=== PATIENT | female | born 1995 | race Caucasian/White ===

== ENCOUNTER 2016-11-05 09:02 | Emergency (ER) | payer MEDICAID, OTHER ==
[~2016-11-05] VITALS: Ht 157.5 cm; Wt 74.8 kg
[~2016-11-05 09:02] MED LIST: UNK ABX
[2016-11-05 09:03] VITALS: BP 121/74
--- NOTE | 2016-11-05 09:05 | NUR ---
PT AMBULATED TO BED 7.
[2016-11-05] MEDS ORDERED: NACL 0.9% 1,000 ML IV ONE (09:15)
[2016-11-05] MEDS ORDERED: KETOROLAC 30 MG/ML VIAL IVP ONE (09:15)
[2016-11-05] MEDS ORDERED: ONDANSETRON 4 MG/2 ML VIAL IVP ONE (09:15)
--- NOTE | 2016-11-05 09:15 | NUR ---
ER MD DR. FORREST EVALUATING PT AT BEDSIDE.
[2016-11-05] MEDS ORDERED: KETOROLAC 30 MG/ML VIAL ONE (09:23)
[2016-11-05] MEDS ORDERED: ONDANSETRON 4 MG/5 ML ORASYR ONE (09:23)
[2016-11-05] MEDS ORDERED: ONDANSETRON 4 MG/2 ML VIAL ONE (09:24)
--- NOTE | 2016-11-05 09:25 | NUR ---
21 F BIB FAMILY FRIEND C/O 11/16 "SHARP" NON-RADIATING RUQ PAIN X 2 DAYS WITH N/V AND CONSTIPATION; PT ALSO C/O DYSURIA, FEVER, AND CHILLS; SKIN IS PINK/WARM/DRY; AOX4 WITH EVEN AND STEADY GAIT; RR ARE EVEN AND UNLABORED; PATIENT POSITIONED FOR COMFORT; HOB ELEVATED; BEDRAILS UP X2; ER MD MADE AWARE OF PT STATUS.; ALL NEEDS MET AT THIS TIME; WILL CONTINUE TO MONITOR
[2016-11-05 09:33] LABS: HEMATOCRIT 40.9 % (36-48); HEMOGLOBIN 13.6 g/dL (12.0-16.0); MEAN CORPUSCULAR HEMOGLOBIN 28 pg (27-31); MEAN CORPUSCULAR HGB CONC 33 g/dL (33-37); MEAN CORPUSCULAR VOLUME 83 fL (80-94); PLATELET COUNT (AUTO) 269 K/uL (140-450); RED BLOOD CELL COUNT(AUTO) 4.95 MIL/uL (4.20-5.40); RED CELL DISTRIBUTION WIDTH 14.6 % (11.6-13.7); WHITE BLOOD COUNT (AUTO) 17.6 K/uL (4.8-10.8)
[2016-11-05 09:44] LABS: ANION GAP 14.9 (8-16); CARBON DIOXIDE 22.4 mmol/L (21-32); POTASSIUM 3.3 mmol/L (3.5-5.1)
[2016-11-05 09:45] LABS: LYMPHOCYTES % (MANUAL) 2 % (20-46); MONOCYTES % (MANUAL) 3 % (5-12)
[2016-11-05 09:50] LABS: TOTAL BILIRUBIN 2.8 mg/dL (0.0-1.0)
--- NOTE | 2016-11-05 11:21 | NUR ---
PATIENT RESTING WITH EYES CLOSED; NAD; VSS; WILL CONTINUE TO MONITOR
[2016-11-05] MEDS ORDERED: MORPHINE SULFATE 4 MG/ML SYR IVP ONE (11:55)
--- NOTE | 2016-11-05 12:15 | NUR ---
Patient discharged with v/s stable. Written and verbal after care instructions given and explained. Patient alert, oriented and verbalized understanding of instructions. Ambulatory with steady gait. All questions addressed prior to discharge. ID band removed. Patient advised to follow up with PMD. Rx of [place], Zofran, Cipro, and MOtrin given. Patient educated on indication of medication including possible reaction and side effects. Opportunity to ask questions provided and answered.
--- NOTE | 2016-11-05 12:15 | NUR ---
ER MD FORREST AWARE AND NOTIFIED OF ELEVATED HEART RATE; PT DENIES ANY CP OR SOB; PT IS AOX4 AND RR ARE EVEN AND UNLABORED; PT TALKING IN FULL COHERET SENTENCES
[2016-11-05 12:20] VITALS: BP 107/70
== END 2016-11-05 12:15 | disposition home or self-care (01) ==
LOC: MED 09:02
DX: N39.0 Urinary tract infection, site not specified (principal); R10.11 Right upper quadrant pain; Z90.49 Acquired absence of other specified parts of digestive tract; Z90.89 Acquired absence of other organs
CPT/HCPCS: 36415; 80053; 81002; 81025; 83690; 85025; 96361; 96374; 96375; 99285; J1885; J2270; J2405; J7030; Q0162

== ENCOUNTER 2016-12-19 23:13 | Emergency (ER) | payer MEDICAID, MEDICARE ==
[~2016-12-19] VITALS: Ht 157.5 cm; Wt 70.9 kg
[2016-12-19 23:19] VITALS: BP 100/60
--- NOTE | 2016-12-20 01:39 | NUR ---
PT TAKEN TO BED 6
--- NOTE | 2016-12-20 01:40 | NUR ---
PT BIB FAMILY C/O L EAR PAIN / SORETHROAT X 3 DAYS. MED HX APENDECTOMY 2007, TONSILS REMOVED 2005. ADVIL TAKEN X 3 HRS AGO. PT DENIES N/V/D; SKIN IS INTACT, PINK/WARM/DRY; AAOX4, PERRL, WITH EVEN AND STEADY GAIT; LUNGS CLEAR BL, BREATHING UNLABORED; HR EVEN AND REGULAR, BL PERIPHERAL PULSES PRESENT; BS ACTIVE X4, NO TENDERNESS TO PALPATION, PT DENIES ANY FEVER, CP, SOB, OR COUGH AT THIS TIME; PT STATES 6/10 PAIN AT THIS TIME; VSS; PATIENT POSITIONED FOR COMFORT; HOB ELEVATED; BEDRAILS UP X2; BED DOWN.
--- NOTE | 2016-12-20 02:50 | NUR ---
Dr. Adair evaluating patient at bedside.
[2016-12-20] MEDS ORDERED: NEOMYCIN/POLYMYXIN/HC OT SUS. 10 ML BTL OT ONE (03:00)
[2016-12-20] MEDS ORDERED: HYDROcodone/APAP 5/325 MG 1 TAB TAB PO ONE (03:00)
[2016-12-20] MEDS ORDERED: METOCLOPRAMIDE 10 MG TAB PO ONE (03:00)
--- NOTE | 2016-12-20 03:30 | NUR ---
Patient discharged with v/s stable. Written and verbal after care instructions given and explained. Patient alert, oriented and verbalized understanding of instructions. Ambulatory with steady gait. All questions addressed prior to discharge. ID band removed. Patient advised to follow up with PMD. Rx of CORTISPONRIN OTIC SUSPENSION, NORCO 5/325 MG, MOTRIN 600 MG given. Patient educated on indication of medication including possible reaction and side effects. Opportunity to ask questions provided and answered.
[2016-12-20 03:33] VITALS: BP 114/75
== END 2016-12-20 03:30 | disposition home or self-care (01) ==
LOC: MED 23:13
DX: H92.02 Otalgia, left ear (principal)
CPT/HCPCS: 99284; J8597